=== PATIENT | female | born 2005 | race African-American/Black ===

== ENCOUNTER 2025-05-01 20:21 | Emergency (ER) | payer BC, SELFPAY ==
--- OUTSIDE RECORDS SUMMARY | 2015-07-14 19:00 | XMS_ITS | Continuity of Care Document ---
Author Organization [facility] Address [address] [place] [address] Phone Care Team Providers Care Log Snaker Name Role Phone Jean-Claude CONE CLASSIFIER TENDER, Denisse Unavailable Unavailabl e Unavailable Unavailable Unavailable Procedures Procedure Date Screening test, pure tone, air only Advance Directives Directive Yes / No Effective Date File Name No Information Encounters Encounter Description Practice Location Reason(s) For Visit Diagnoses Date Provider Providers Copied on Encounter [facility], [address] [address], [place], [place], [id number], tel:[phone] [facility] Encounter for screening for eye and ear disorders Jean-Claude Salcedo. [address], [place], [place], [id number], . tel:[phone] Referring Provider: Denisse Bermeo, [address] [address], [place], [address]. tel:[phone] Family History Family Member Type Diagnosis Age At Onset No Information Payers Payer name Insurance type Covered alliance party ID Authoriza tion(s) No Information Social History Type Description Quantity Date Captured Comments Sex Female Smoking Status No Information Vital Signs Date / Time: Height Weight BMI Pulse Rate Blood Pressure Temperature Respiratory Rate Body Surface Area Head Circumference Head Circ. Percentile Wt./Toni. Percentile BMI percentile Pulse Ox Inhaled Ox 2:30 PM 60.00 in 79.016 kg (174.20 lbs) 34.0 2 kg/m eter (2) 99 Chief Complaint And Reason For Visit No Information Reason For Referral Reason For Referral No Information History Of Present Illness Encounter Date Complaint History Of Prese nt Illness No Information Functional Status Date Functional Assessmen t No Information Instructions Date Instruction Additional Infor mation No Information Assessments Type Assessment Date assessment Encounter for screening for eye and ear disorders Patient Care Teams Name Effective Dates (start - stop) Status Members No Information
--- NOTE | ~2025-05-01 | XR_ITS ---
XR chest 2V HOSTORY: chest tightness COMPARISON:[ None] FINDINGS: Frontal and lateral views of the chest were obtained. The lungs are clear. The heart size is normal in size. Pulmonary vasculature is unremarkable. Osseous structures are intact. IMPRESSION: No acute lung findings.] [ ] Reviewed, dictated and finalized at location S.
--- NOTE | ~2025-05-01 | US_ITS ---
LIMITED ABDOMINAL ULTRASOUND INDICATION:cp->back, elevated LFTS COMPARISON: None. FINDINGS: Liver: Visualized portions of the liver are normal. Common bile duct: Normal in size. Gallbladder: Cholelithiasis and sludge are noted in the gallbladder. Gallbladder wall is normal in thickness. There are no pericholecystic fluid. Clement's sign: Positive Right kidney:There is no hydronephrosis. Right kidney is unremarkable. IMPRESSION: Cholelithiasis without evidence of acute cholecystitis. Reviewed, dictated and finalized at location S.
--- NOTE | 2025-05-01 20:24 | ECG_ITS ---
Test Date: 2025-05-01 20:32:28 Measurements Intervals Bryant Rate: 70 P: 46 TX: 147 QRS: 47 QRSD: 94 T: 38 QT: 384 QTc: 416 Interpretive Statements SINUS RHYTHM WITH SINUS ARRHYTHMIA NORMAL ECG No previous ECG available for comparison Electronically Signed On 05-02-2025 10:53:11 CDT by Solitario Alexander D.O.
[2025-05-01 21:15] LABS: Hematocrit 36.2 % (37.0-47.0); Hemoglobin 11.4 g/dL (12.0-15.0); Immature Granulocyte Percent A 0.3 % (0-0.5); Lymphocytes Absolute Auto 1.47 K/mm3 (0.9-3.2); Mean Corpuscular HGB Conc 31.5 g/dl (32-36); Mean Corpuscular Hemoglobin 25.2 pg (26-34); Mean Corpuscular Volume 79.9 fl (80-100); Nucleated Red Blood Cells Absolute Auto 0.000 K/mm3 (0.0-0.012); Nucleated Red Blood Cells Perc 0.0 % (0.0-0.2); Platelet Count Result 475 k/mm3 (150-375); Red Blood Count 4.53 M/mm3 (4.2-5.4); White Blood Count 11.6 K/mm3 (4.5-10.0)
[2025-05-01 21:26] LABS: INR 1.0; Prothrombin Time 13.0 Seconds (11.1-14.7)
[2025-05-01 21:27] LABS: Partial Thromboplastin Time 29.7 Seconds (22.3-36.8)
[2025-05-01 21:31] LABS: Alanine Aminotransferase 133 U/L (6-35); Albumin Level 4.5 g/dL (3.5-5.1); Alkaline Phosphatase 118 U/L (38-126); Anion Gap 9 mmol/L (4-12); Aspartate Amino Transferase 313 U/L (14-36); Bilirubin,Total 1.1 mg/dL (0.2-1.3); Blood Urea Nitrogen 9 mg/dL (7-17); Calcium 10.4 mg/dL (8.4-10.2); Carbon Dioxide 27 mmol/L (22-30); Chloride 100 mmol/L (98-107); Estimated Glomerular Filt Rate > 60; Glucose 104 mg/dL (65-110); Lipase 50 U/L (23-300); Potassium 4.1 mmol/L (3.4-5.0); Sodium 136 mmol/L (137-145); Total Protein 8.3 g/dL (6.3-8.2)
--- OUTSIDE RECORDS SUMMARY | 2025-05-01 21:33 | XMS_ITS | Encounter Summary ---
Author Organization [facility] Address [address] [place] [address] Phone Care Team Providers Care University Registrar Name Role Phone Chelsey Grande MD Primary Care Provider [phone] Encounter Details Date Type Department Care Team (Late st Contact Info) Description 03/31/2020 Telephone [facility] Pediatric [facility] [address] [place] [address] [address] [place] [id number] Donaldo Burgos Social History Tobacco Use Types Packs/Day Years Used Date Smoking Tobacco: Never PHQ-2 Answer Date Recorded PHQ-2 Total Score (If total score is 3 or more points, staff should administer the PHQ-9) 2 04/01/2020 Comments Unknown Sex and Gender Information Value Date Recorded Sex Assigned at Not on file Legal Sex Female 6:53 AM BLOCK BREAKER Gender Identity Not on file Sexual Orientation Not on file documented as of this encounter Plan of Treatment Not on file documented as of this encounter Visit Diagnoses Not on filedocumented in this encounter Care Teams University Registrar Relationship Specialty Start Date End Date Chelsey Grande MD PCP - General Pediatrics 12/12/19 documented as of this encounter
--- OUTSIDE RECORDS SUMMARY | 2025-05-01 21:33 | XMS_ITS | Clinical Summary ---
Author Organization [facility] Address [address] [place] [address] Care Team Providers Care Automation Test Developer Name Role Phone Chelsey Grande MD Primary Care Provider [phone] Allergies No known active allergies Medications loratadine (CLARITIN) 10 mg tablet Take 10 mg by mouth daily Active sertraline (ZOLOFT) 100 mg tablet 3 Active spironolactone (ALDACTONE) 100 mg tablet 3 Active Tri-Sprintec, 28, 0.18/0.215/0.25 mg-35 mcg (28) per tablet Take 1 tablet by mouth daily 3 Active fluticasone propionate (FLONASE) 50 mcg/actuation nasal sprayIndication s:Snoring Administer 1 spray into each nostril daily 1 each 11 4 Active Active Problems Problem Noted Date Diagnosed Date Generalized anxiety disorder 07/05/2022 Mixed obsessional thoughts and acts 07/05/2022 Borderline diabetes mellitus 06/21/2016 Severe obesity due to excess calories with serious comorbidity and body mass index (BMI) greater than 99th percentile for age in pediatric patient 06/21/2016 Acanthosis nigricans 06/21/2016 Closed fracture of shaft of tibia with fibula Open fracture of part of fibula with tibia 01/07 Closed fracture of shaft of tibia 12/23/2013 ADHD Medical History Medical History Date Comments Tibia fracture 2013 Adhd Environmental allergies Family History Medical History Relation Name Comments Diabetes type II Mother Gestational diabetes Mother Hypertension Mother Relation Name Status Comments Mother Social History Tobacco Use Types Packs/Day Years Used Date Smoking Tobacco: Never Tobacco Cessation:Counseling Given: Not Answered PHQ-2 Answer Date Recorded PHQ-2 Total Score (If total score is 3 or more points, staff should administer the PHQ-9) 2 04/01/2020 Personal Safety Answer Date Recorded Getting School Help Needed Not on file 06/20 Comments Unknown Sex and Gender Information Value Date Recorded Sex Assigned at Not on file Legal Sex Female 6:53 AM DIRECTOR TEEN POST Gender Identity Not on file Sexual Orientation Not on file History Length Weight Head Circum Date/Time Gestation Age D/C Weight APGARs Delivery Method Feeding 6 lb 12 oz (3.062 kg) 2004 , Unspecified Gestational diabetes requiri ng insulin, mom on prednisone late in due to anaphylactic reaction Obstetrics History Last Filed Vital Signs Vital Sign Reading Time Taken Comments Blood Pressure 110/64 09/22/2022 9:24 AM CDT Pulse 85 09/22/2022 9:24 AM CDT Temperature 36.7 C (98.1 F) 09/22/2022 9:24 AM CDT Respiratory Rate 20 09/22/2022 9:24 AM CDT Oxygen Saturation 97% 09/22/2022 9:24 AM CDT Inhaled Oxygen Concentration - - Weight 120.5 kg (265 lb 9.6 oz) 09/22/2022 9:24 AM CDT Height 160.9 cm (5' 3.35) 09/22/2022 9:24 AM CD T Body Mass Index 46.54 09/22/2022 9:24 AM CDT Plan of Treatment Health Maintenance Due Date Last Done Comments Hepatitis C Screening 2004 DTaP/Tdap/Td Vaccine (6 - Tdap) 2015 03/25/2009, 08/30/2006, 03/01/2005, Additional history exists HPV Vaccines (1 - 3-dose series) 2019 Depression Screening 04/01/2021 04/01/2020 Regular Well Visit/Exam 18-64 2022 Meningococcal B Vaccine (2 of 2 - Trumenba SCDM 2-dose series) 11/16/2022 05/19/2022 Covid-19 Vaccine (2 - season) 2025 01/20/2022 Influenza Vaccine (#1) 2025 05/25/2010 Hepatitis B Screening Completed 03/01/2005, 005 Pneumococcal vaccine <65 Completed 008, 08/30/2006, 03/01/2005, Additional history exists Varicella Vaccines Completed 03/25/2009, 07/26/2005 Meningococcal Vaccine Aged Out No raheem rocío eligible based on patient's age to complete this topic Goals Goal Patient Goal Type Associated Problems Recent Progress Patient-Stated? Author -Anxiety Behavioral Health No change(10/18 3:48 PM CDT) No Ninfa Flores, PhD Note: Decrease anxious rumination -Anxiety Behavioral Health No change(10/18 3:48 PM CDT) No Ninfa Flores, PhD Note: Decrease avoidant behaviors -[facility] Behavioral [facility] No change(10/18 3:48 PM CDT) No Ninfa Flores, PhD Note: Decrease compulsive [place] [address] [facility] CHO[facility] PLUS [facility] CHOICE PLUS * Guarantor: RALPH MELÉNDEZ Account Type Relation to Patient Date of Phone Billing Address Personal/[place] [address] [facility] [place] [address] [facility] [place] [address] [facility] [place] [id number] Care Teams Automation Test Developer Relationship Specialty Start Date End Date October, Chelsey Lizarraga MD PCP - General Pediatrics 12/12/19
[2025-05-01] MEDS: LACTATED RINGERS 1,000 ML 999 ML IV CONT (21:37)
[2025-05-01] MEDS: KETOROLAC 15 MG/ML VIAL (*BKC) IV PUSH (21:37)
[2025-05-01 21:38] LABS: Troponin I < 0.012 ng/mL (0.000-0.034)
--- NOTE | 2025-05-01 21:58 | ED_ITS ---
HPI - Chest Pain General Chief Complaint: Chest Pain Stated Complaint: Chest tightness for several hours Time Seen by Provider: 05/01/25 21:04 History of Present Illness HPI narrative: 19-year-old female with history of generalized anxiety disorder and OCD currently not compliant with her medications. Patient presents to the emergency depart with chest tightness for several hours. Occurred today while she was at school. States she was feeling chest tightness going towards her back and difficulty breathing but came and went throughout the day. Head ambulance, evaluated her at the school and she declined going to the hospital at that time. Her mom took her to the hospital this evening. Patient states her symptoms are better but still having some chest tightness. Describes as a soreness in her chest and back. No traumatic injuries. No history of asthma. Thinks it could be unrelated to anxiety but also does have generalized anxiety disorder. No fever, chills, shortness a breath, nausea, vomiting. Was otherwise in her normal state of health. No abdominal pain. No traumatic injury. Did not take anything for symptom control at home. No cardiac history or family history of cardiac disease. Related Data Allergies Allergy/AdvReac Type Severity Reaction Status Date / Time No Known Allergies Allergy Verified 05/01/25 20:22 Review of Systems 2 Review of Systems: As reviewed above in HPI Exam 2 Narrative: GENERAL: [Well-appearing, well-nourished, and in no acute distress.] HEAD: [Normocephalic, atraumatic.] EYES: [PERRLA and EOMI.] ENT: Nares clear, no rhinorrhea or epistaxis. Mucous membranes moist. NECK: Supple. CHEST: [Clear to auscultation. No respiratory distress.] HEART: [Regular rate and rhythm]. No murmur heard. [Normal peripheral pulses.] ABDOMEN: [Soft, nondistended], [nontender], [No rigidity or guarding] EXTREMITIES: Normal range of motion. [No edema.] SKIN: Warm, dry, no rash. NEURO: [No focal deficits]. Alert and oriented [x3.] PSYCH: [Normal mood and affect.] MDM - Chest Pain MDM Narrative Medical decision making narrative: 19-year-old female with history of generalized anxiety disorder and OCD currently not compliant with her medications. Patient presents to the emergency depart with chest tightness for several hours. Occurred today while she was at school. States she was feeling chest tightness going towards her back and difficulty breathing but came and went throughout the day. Head ambulance, evaluated her at the school and she declined going to the hospital at that time. Her mom took her to the hospital this evening. Patient states her symptoms are better but still having some chest tightness. Describes as a soreness in her chest and back. No traumatic injuries. No history of asthma. Thinks it could be unrelated to anxiety but also does have generalized anxiety disorder. No fever, chills, shortness a breath, nausea, vomiting. Was otherwise in her normal state of health. No abdominal pain. No traumatic injury. Did not take anything for symptom control at home. No cardiac history or family history of cardiac disease. patient is overall well-appearing not any acute distress. Vital signs show no tachycardia, fever, hypoxemia. Blood pressure mildly elevated 140 systolic. Unremarkable physical examination. Does have a history of anxiety and this could be anxiety mediated or panic attack versus other underlying process such as cardiac disease, electrolyte imbalance, dehydration or infection. X-rays cardiac markers EKG and basic laboratory studies obtained. She does have elevated LFTs on initial CMP so right upper quadrant ultrasound was ordered to rule out gallstones which can present similarly. Patient given Toradol and LR. laboratory studies show slight leukocytosis but also evidence of hemoconcentration with elevated platelet count so most likely not actually reactive or infectious. Given fluids for this. Electrolytes unremarkable. Normal creatinine. Normal glucose. Elevated calcium consistent with dehydration. Elevated LFTs but normal bilirubin. Troponin negative. Lipase normal. Right upper quadrant ultrasound shows gallstones without evidence of cholecystitis. This could explain patient's symptomatology and she will be referred to an outpatient general surgeon for evaluation for further management. Patient instructed on pain control medications such as Tylenol and ibuprofen and red flags to watch out for and safe for discharge home at this time. Medical Records Data Attestation: I reviewed the patient's medical records. Lab Data Attestation: I reviewed the patient's lab results. 05/01/25 21:09 05/01/25 21:09 Labs: Lab Results 05/01/25 Range/Units 21:09 WBC 11.6 H (4.5-10.0) K/mm3 RBC 4.53 (4.2-5.4) M/mm3 Hgb 11.4 L (12.0-15.0) g/dL Hct 36.2 L (37.0-47.0) % MCV 79.9 L (80-100) fl MCH 25.2 L (26-34) pg MCHC 31.5 L (32-36) g/dl RDW 17.3 H (11.5-14.5) % Plt Count 475 H (150-375) k/mm3 MPV 9.8 (7.4-10.4) fl Immature Gran % (Auto) 0.3 (0-0.5) % Neut % (Auto) 81.7 H (45.5-73.1) % Lymph % (Auto) 12.7 L (18.3-44.2) % [place] % (Auto) 4.8 (2.6-8.5) % Eos % (Auto) 0.3 (0-4.4) % Baso % (Auto) 0.2 (0.2-1.2) % Lymph # (Auto) 1.47 (0.9-3.2) K/mm3 [place] # (Auto) 0.6 (0.1-0.6) K/mm3 Eos # (Auto) 0.0 (0-0.3) K/mm3 Baso # (Auto) 0.0 (0.0-0.1) K/mm3 Abs Immat Gran (auto) 0.03 (0.00-0.031) K/mm3 Absolute Neuts (auto) 9.4 H (1.3-6.7) K/mm3 Absolute Nucleated RBC 0.000 (0.0-0.012) K/mm3 Nucleated RBC % 0.0 (0.0-0.2) % PT 13.0 (11.1-14.7) Seconds INR 1.0 APTT 29.7 (22.3-36.8) Seconds Sodium 136 L (137-145) mmol/L Potassium 4.1 (3.4-5.0) mmol/L Chloride 100 (98-107) mmol/L Carbon Dioxide 27 (22-30) mmol/L Anion Gap 9 (4-12) mmol/L BUN 9 (7-17) mg/dL Creatinine 0.58 L (0.7-1.0) mg/dL Estim Creat Clear Calc Not Reportable Estimated GFR > 60 (59 - ) Glucose 104 (65-110) mg/dL Calcium 10.4 H (8.4-10.2) mg/dL Total Bilirubin 1.1 (0.2-1.3) mg/dL AST 313 H (14-36) U/L ALT 133 H (6-35) U/L Alkaline Phosphatase 118 (38-126) U/L Troponin I < 0.012 (0.000-0.034) ng/mL Total Protein 8.3 H (6.3-8.2) g/dL Albumin 4.5 (3.5-5.1) g/dL Lipase 50 (23-300) U/L Imaging Data Attestation: I personally reviewed and interpreted this imaging study as follows: My impression: Impressions Chest X-Ray 05/01/25 21:02 IMPRESSION: No acute lung findings.] [ ] Abdomen Ultrasound 05/01/25 22:17 IMPRESSION: Cholelithiasis without evidence of acute cholecystitis. Discharge Plan Discharge Clinical Impression: Chest pain, Gallbladder attack, Cholelithiases Patient Disposition: Home Condition: Stable Instructions: Antibiotic Form, Cholecystitis (ED), Biliary Colic (ED) Additional Instructions: Your ultrasound shows gallstones which can definitely cause the chest pain going towards the back. Symptoms also might be anxiety mediated but given the findings today will have you follow up with general surgery. Follow-up with the provided general surgeon for outpatient evaluation. If you have any recurrent worsening symptoms, intractable fevers, intractable nausea vomiting, or any other emergent concerns come back to the ED otherwise follow-up outpatient with the primary care provider and general surgeon. Take Tylenol and ibuprofen for any aches or pains. Patient Language: Georgian Follow-up/Referrals: Julius Sampson [Other] Alexander Ibarra MD [Physician, General Surgery] - 3 Days Referral Note: Symptomatic cholelithiasis Stand Alone Forms: Work/School Release IP Time of Disposition: 22:33
== END 2025-05-01 23:07 | disposition home or self-care (01) ==
PROVIDERS: Emergency Provider Student in an Organized Health Care Education/Training Program
DX: K80.20 Calculus of gallbladder without cholecystitis without obstruction (principal); R07.89 Other chest pain; F41.1 Generalized anxiety disorder; F42.9 Obsessive-compulsive disorder, unspecified; T50.916A Underdosing of multiple unspecified drugs, medicaments and biological substances, initial encounter
CPT/HCPCS: 36415; 71046; 76705; 80053; 83690; 84484; 85025; 85610; 85730; 93005; 96361; 96374; 99284; J1885; J7120